=== PATIENT | female | born 1985 | race Caucasian/White ===

== ENCOUNTER 2017-06-09 09:26 | Emergency (ER) | payer BC ==
[~2017-06-09] VITALS: Ht 167.6 cm; Wt 103.0 kg
[~2017-06-09 09:26] MED LIST: GLUCTAB PO; IBUP800T23 PO; METH750T2 PO
[2017-06-09 09:29] VITALS: BP 137/75; PULSE 88; RESP 16; TEMP 97.7; O2SAT 98
[2017-06-09 09:41] LABS: BILIRUBIN, URINE NEG (NEG); BLOOD, URINE TRACE (NEG); GLUCOSE,URINE NEG (NEG); KETONE, URINE NEG (NEG); NITRITE,URINE NEG (NEG); URINE COLOR YELLOW (YELLW/STRAW); URINE LEUKOCYTE ESTERASE NEG (NEG)
[2017-06-09] MEDS ORDERED: METF1000 PO (09:42)
[2017-06-09 09:47] LABS: RBC, URINE 0-3 /hpf (0-3); SQUAMOUS EPITHELIAL CELL URINE 0-5 /hpf (0-5)
[2017-06-09] MEDS ORDERED: KETOROLAC TROMETHAMINE 60 MG/2 ML (IM) VIAL IM ONE (10:15)
[2017-06-09] MEDS ORDERED: SODIUM CHLOR 0.9% 1000 ML INJ 1,000 ML IV SCH (10:15)
[2017-06-09 10:53] LABS: AUTOMATED NEUTROPHIL # 4.5 TH/MM3 (1.8-7.7); BASOPHIL # 0.2 TH/MM3 (0-0.2); BASOPHIL % 2.8 % (0.0-2.0); EOSINOPHIL # 0.4 TH/MM3 (0-0.4); HEMATOCRIT 36.2 % (35.0-46.0); HEMOGLOBIN 12.8 GM/DL (11.6-15.3); LYMPH % 31.3 % (9.0-44.0); LYMPHOCYTE # 2.6 TH/MM3 (1.0-4.8); MEAN CELL VOLUME 86.9 FL (80.0-100.0); MEAN CORPUSCULAR HEMOGLOBIN 30.7 PG (27.0-34.0); MEAN CORPUSCULAR HGB CONC 35.3 % (32.0-36.0); MEAN PLATELET VOLUME 7.9 FL (7.0-11.0); MONOCYTE # 0.5 TH/MM3 (0-0.9); NEUT % 54.9 % (16.0-70.0); PLATELET COUNT 255 TH/MM3 (150-450); RED BLOOD COUNT 4.17 MIL/MM3 (4.00-5.30); RED CELL DISTRIBUTION WIDTH 12.7 % (11.6-17.2); WHITE BLOOD COUNT 8.2 TH/MM3 (4.0-11.0)
[2017-06-09 11:00] LABS: CHLORIDE 107 MEQ/L (98-107); SODIUM (NA) 140 MEQ/L (136-145)
[2017-06-09 11:04] LABS: ALBUMIN 3.3 GM/DL (3.4-5.0); BICARBONATE 26.3 MEQ/L (21.0-32.0); BLOOD UREA NITROGEN 14 MG/DL (7-18); CALCIUM 8.2 MG/DL (8.5-10.1); GLUCOSE,RANDOM 97 MG/DL (74-106)
[2017-06-09 11:05] LABS: PROTHROMBIN TIME - PATIENT 9.9 SEC (9.8-11.6)
[2017-06-09 11:07] LABS: ALT (GPT) 20 U/L (10-53); AST (GOT) 11 U/L (15-37); CREATININE 0.69 MG/DL (0.50-1.00); GLOMERULAR FILTRATION RATE 98 ML/MIN (>89)
[2017-06-09 11:09] LABS: TOTAL BILIRUBIN ADULT 0.2 MG/DL (0.2-1.0); TOTAL PROTEIN 7.3 GM/DL (6.4-8.2)
[2017-06-09 11:10] LABS: ALKALINE PHOSPHATASE 84 U/L (45-117)
[2017-06-09 11:51] VITALS: BP 120/66; PULSE 90; RESP 16; O2SAT 98
--- NOTE | 2017-06-09 12:32 | RADRPT ---
EXAM DATE/TIME: 06/09/2017 11:26 [facility] COMPARISON: US ABDOMEN - GALLBLADDER, June 22, 2014, 12:19. INDICATIONS : Right upper quadrant pain. MEDICAL HISTORY : PCOS. Kidney stones. SURGICAL HISTORY : section. Left knee arthoscopy. Dilation and curettage. Gynecologic surgery, fallopian tu be. ENCOUNTER: Initial ACUITY: 4-6 days PAIN SCORE: 4/10 LOCATION: Right upper quadrant MEASUREMENTS: LIVER: 19.9 cm length COMMON DUCT: 4 mm RIGHT KIDNEY: 11.7 x 5.3 x 5.3 cm FINDINGS: LIVER: Mild diffuse increased hepatic echogenicity with hepatomegaly. No focal mass or intrahepatic ductal d ilatation. COMMON DUCT: No intraluminal mass or stone visualized. GALLBLADDER: Contains no stones, demonstrates no wall thickening or pericholecystic fluid. PANCREAS: The visualized portions are within normal limits. RIGHT KIDNEY: No evidence of hydronephrosis, stone, or mass. CONCLUSION: 1. Echogenic enlarged liver consistent with hepatic steatosis versus medical liver disease. 2. Otherwise, unremarkable right upper quadrant ultrasound exam. Specifically, no cholelithiasis or s onographic evidence for cholecystitis. Miguelito Artis MD on June 09, 2017 at 12:28 Board Certified Radiologist. This report was verified electronically.
--- NOTE | 2017-06-09 12:44 | PD ---
HPI Chief Complaint: Abdominal Pain Time Seen by Provider: 10:02 Travel History International Travel<30 days: No Contact w/Intl Traveler<30days: No Traveled to known affect area: No History of Present Illness HPI 31-year-old female presents emergency department for evaluation of right upper quadrant pain that started Wednesday and she was playing with her son. Says that her son hit her in the right upper abdominal region and noticed that this was a little sore. Says a day later he accidentally need her into the stomach is ever playing and she developed increased pain. Says she feels her right upper quadrant is in "knots", is mild in severity and nonradiating. She noticed a bruise on Wednesday. She had one episode of nausea without vomiting or diarrhea. Denies fevers or chills. Denies urinary complaints. Her pain is not associated with food or activity. Her surgical history is significant for an ex lap to to perform a surgery on her fallopian tubes. She has a history of PCO S and takes metformin for control of this disease process. She has no other complaints today. FOR[facility]LY [facility], [facility]ER [facility] Past Medical History Anxiety: Yes Depression: Yes Heart Rhythm Problems: Yes (PVC-R/T ANXIETY) Cancer: No Cardiovascular Problems: No Diabetes: No Patient Takes Glucophage: Yes Diminished Hearing: No Glaucoma: No Hepatitis: No Hiatal Hernia: No Hypertension: No Kidney Stones: Yes Medical other: Yes (ANXIETY) Neurologic: Yes (PT STATES SHE HAD MENINGITIS IN MAY 2006) Reproductive: Yes (PCOS) Respiratory: No Immunizations Current: Yes Migraines: Yes Thyroid Disease: No ?: Unknown LMP: 04/15/17 : 4 Para: 2 Miscarriage: 2 : 1 Ovarian Cysts: Yes (PCOS) Dilation and Curettage (D&C): Yes (IN 2002) Past Surgical History Abdominal Surgery: No Cardiac Surgery: No Section: Yes (x2) Ear Surgery: No Endocrine Surgery: No Eye Surgery: No Genitourinary Surgery: No Gynecologic Surgery: Yes (C SECTION X2, D&C) Neurologic Surgery: No Oral Surgery: No Pacemaker: No Thoracic Surgery: No Other Surgery: Yes (D&C 2002) Social History Alcohol Use: Yes (OCC) Tobacco Use: No Substance Use: No Allergies-Medications (Allergen,Severity, Reaction): Coded Allergies: No Known Allergies (Verified Adverse Reaction, Unknown, 06/09/17) Reported Meds & Prescriptions Reported Meds & Active Scripts Active Reported Metformin (Metformin HCl) 1,000 Mg Tab 1,000 Mg PO DAILY With a meal Review of Systems Except as stated in HPI: all other systems reviewed are Neg Physical Exam Narrative GENERAL: Well-nourished, well-developed patient. SKIN: Focused skin assessment warm/dry. Right mid abdomen region with a 4 cm round area of ecchymosis in the healing process. HEAD: Normocephalic. EYES: No scleral icterus. No injection or drainage. NECK: Supple, trachea midline. No JVD or lymphadenopathy. CARDIOVASCULAR: Regular rate and rhythm without murmurs, gallops, or rubs. RESPIRATORY: Breath sounds equal bilaterally. No accessory muscle use. GASTROINTESTINAL: Abdomen soft, nondistended. Mild right upper quadrant tenderness to palpation without rebound tenderness. No right lower quadrant or pain anywhere else in the abdomen. No CVA tenderness. MUSCULOSKELETAL: No cyanosis, or edema. BACK: Nontender without obvious deformity. No CVA tenderness. Data Data Last Documented VS Vital Signs Date Time Temp Pulse Resp B/P (MAP) Pulse Ox O2 Delivery O2 Flow Rate FiO2 06/09/17 11:51 90 16 120/66 (84) 98 Room Air 06/09/17 09:29 97.7 Orders Orders Urinalysis - C+S If Indicated (06/09/17 09:28) Ed Urine Pregnancytest Poc (06/09/17 09:28) Complete Blood Count With Diff (06/09/17 10:15) Comprehensive Metabolic Panel (06/09/17 10:15) Lipase (06/09/17 10:15) Prothrombin Time / Inr (Pt) (06/09/17 10:15) Act Partial Throm Time (Ptt) (06/09/17 10:15) Sodium Chlor 0.9% 1000 Ml Inj (Ns 1000 M (06/09/17 10:15) Ketorolac Inj (Toradol Inj) (06/09/17 10:15) Us Abdomen Gallbladder (06/09/17 ) Ed Discharge Order (06/09/17 12:44) Labs Laboratory Tests Test 06/09/17 09:30 06/09/17 10:30 Urine Collection Type CLEAN CATCH Urine Color YELLOW Urine Turbidity CLEAR Urine pH 6.0 Urine Specific Berry 1.020 Urine Protein NEG mg/dL Urine Glucose (UA) NEG mg/dL Urine Ketones NEG mg/dL Urine Occult Blood TRACE Urine Nitrite NEG Urine Bilirubin NEG Urine Urobilinogen 0.2 MG/DL Urine Leukocyte Esterase NEG Urine RBC 0-3 /hpf Urine Squamous Epithelial Cells 0-5 /hpf Microscopic Urinalysis Comment CULT NOT INDICATED Urine Collection Time 09:30 White Blood Count 8.2 TH/MM3 Red Blood Count 4.17 MIL/MM3 Hemoglobin 12.8 GM/DL Hematocrit 36.2 % Mean Corpuscular Volume 86.9 FL Mean Corpuscular Hemoglobin 30.7 PG Mean Corpuscular Hemoglobin Concent 35.3 % Red Cell Distribution Width 12.7 % Platelet Count 255 TH/MM3 Mean Platelet Volume 7.9 FL Neutrophils (%) (Auto) 54.9 % Lymphocytes (%) (Auto) 31.3 % Monocytes (%) (Auto) 6.0 % Eosinophils (%) (Auto) 5.0 % Basophils (%) (Auto) 2.8 % Neutrophils # (Auto) 4.5 TH/MM3 Lymphocytes # (Auto) 2.6 TH/MM3 Monocytes # (Auto) 0.5 TH/MM3 Eosinophils # (Auto) 0.4 TH/MM3 Basophils # (Auto) 0.2 TH/MM3 CBC Comment DIFF FINAL Differential Comment Prothrombin Time 9.9 SEC Prothromb Time International Ratio 1.0 RATIO Activated Partial Thromboplast Time 26.4 SEC Blood Urea Nitrogen 14 MG/DL Creatinine 0.69 MG/DL Random Glucose 97 MG/DL Total Protein 7.3 GM/DL Albumin 3.3 GM/DL Calcium Level 8.2 MG/DL Alkaline Phosphatase 84 U/L Aspartate Amino Transf (AST/SGOT) 11 U/L Alanine Aminotransferase (ALT/SGPT) 20 U/L Total Bilirubin 0.2 MG/DL Sodium Level 140 MEQ/L Potassium Level 4.1 MEQ/L Chloride Level 107 MEQ/L Carbon Dioxide Level 26.3 MEQ/L Anion Gap 7 MEQ/L Estimat Glomerular Filtration Rate 98 ML/MIN Lipase 138 U/L [facility] Medical Decision Making Medical Screen Exam Complete: Yes Emergency Medical Condition: Yes Differential Diagnosis Hepatic steatosis, cholelithiasis, cholecystitis Narrative Course 31-year-old female presents emergency department for evaluation of right upper quadrant pain that started Wednesday and she was playing with her son. Says that her son hit her in the right upper abdominal region and noticed that this was a little sore. Says a day later he accidentally need her into the stomach is ever playing and she developed increased pain. Says she feels her right upper quadrant is in "knots", is mild in severity and nonradiating. She noticed a bruise on Wednesday. She had one episode of nausea without vomiting or diarrhea. Denies fevers or chills. Denies urinary complaints. Her pain is not associated with food or activity. Her surgical history is significant for an ex lap to to perform a surgery on her fallopian tubes. She has a history of PCO S and takes metformin for control of this disease process. She has no other complaints today. Vital signs are stable. Labs and imaging studies ordered. Labs are stable. test negative. Ultrasound consistent for fatty liver disease. Patient denies significant alcohol intake. She denies any oral contraceptive use. Advised patient that she should follow-up with her primary care physician to evaluate further for this liver finding. Advised to return to the emergency department for worsening or persistent symptoms. She states understanding will comply. Diagnosis Primary Impression: Hepatic steatosis Referrals: General Surgeon Primary Care Physician Additional Instructions: Follow-up with primary care physician regarding today's findings. Avoid alcohol intake until further evaluation can be completed of your liver. If your symptoms persist or worsen return to the emergency department. Disposition: 01 DISCHARGE HOME Condition: Stable Katiuska Soliz Jun 09, 2017 12:44
== END 2017-06-09 13:00 | disposition home or self-care (01) ==
LOC: PHED 09:26
DX: K76.0 Fatty (change of) liver, not elsewhere classified (principal); R11.0 Nausea; F41.9 Anxiety disorder, unspecified; F32.9 Major depressive disorder, single episode, unspecified; Z87.442 Personal history of urinary calculi; Z79.899 Other long term (current) drug therapy
CPT/HCPCS: 76705; 80053; 81001; 83690; 84703; 85025; 85610; 85730; 96360; 96372; 99284; J1885; J7030

== ENCOUNTER 2017-06-25 17:10 | Emergency (ER) | payer BC ==
[~2017-06-25] VITALS: Ht 167.6 cm; Wt 103.0 kg
[~2017-06-25 17:10] MED LIST changes: -GLUCTAB PO; -IBUP800T23 PO; +METF1000 PO; -METH750T2 PO
[2017-06-25 17:43] VITALS: BP 121/69; PULSE 80; RESP 18; TEMP 98.3; O2SAT 98
[2017-06-25 18:55] VITALS: O2SAT 98
[2017-06-25] MEDS ORDERED: SODIUM CHLOR 0.9% 1000 ML INJ 1,000 ML IV ONE (19:00)
[2017-06-25] MEDS ORDERED: KETOROLAC TROMETHAMINE 30 MG/ML (IVP) VIAL IV PUSH ONE (19:00)
[2017-06-25] MEDS ORDERED: SODIUM CHLORIDE 0.9% FLUSH 10 ML FLUSH IVF PRN (19:00)
[2017-06-25 19:11] VITALS: BP_SYST 117; BP_SYST 130; BP_DIAS 70; BP_DIAS 74
--- NOTE | 2017-06-25 19:11 | RADRPT ---
EXAM DATE/TIME: 06/25/2017 18:59 [facility] COMPARISON: No previous studies available for comparison. INDICATIONS : Left sided chest pain. MEDICAL HISTORY : PCOS. Kidney stones SURGICAL HISTORY : section. Left knee arthoscopy. Dilation and curettage. Gynecologic surgery, fallopian tube. ENCOUNTER: Initial ACUITY: 1 day PAIN SCORE: 7/10 LOCATION: Left chest FINDINGS: PA and lateral views of the chest demonstrate the lungs to be symmetrically aerated without evidence of mass, infiltrate or effusion. The cardiomediastinal contours are unremarkable. Osseous structure s are intact. CONCLUSION: No evidence of acute cardiopulmonary disease. Zachery Samson MD on June 25, 2017 at 19:09 Board Certified Radiologist. This report was verified electronically.
[2017-06-25 19:15] LABS: AUTOMATED NEUTROPHIL # 4.8 TH/MM3 (1.8-7.7); BASOPHIL # 0.1 TH/MM3 (0-0.2); BASOPHIL % 0.8 % (0.0-2.0); EOSINOPHIL # 0.5 TH/MM3 (0-0.4); HEMOGLOBIN 12.5 GM/DL (11.6-15.3); LYMPHOCYTE # 3.2 TH/MM3 (1.0-4.8); MEAN CELL VOLUME 87.2 FL (80.0-100.0); MEAN CORPUSCULAR HEMOGLOBIN 29.3 PG (27.0-34.0); MEAN CORPUSCULAR HGB CONC 33.6 % (32.0-36.0); MEAN PLATELET VOLUME 7.5 FL (7.0-11.0); MONO % 5.8 % (0.0-8.0); MONOCYTE # 0.5 TH/MM3 (0-0.9); NEUT % 52.4 % (16.0-70.0); PLATELET COUNT 255 TH/MM3 (150-450); RED BLOOD COUNT 4.25 MIL/MM3 (4.00-5.30); RED CELL DISTRIBUTION WIDTH 12.3 % (11.6-17.2); WHITE BLOOD COUNT 9.1 TH/MM3 (4.0-11.0)
[2017-06-25 19:22] LABS: CHLORIDE 106 MEQ/L (98-107); SODIUM (NA) 139 MEQ/L (136-145)
[2017-06-25 19:26] LABS: CALCIUM 8.5 MG/DL (8.5-10.1)
[2017-06-25 19:27] LABS: ALBUMIN 3.6 GM/DL (3.4-5.0); BICARBONATE 27.3 MEQ/L (21.0-32.0); BLOOD UREA NITROGEN 9 MG/DL (7-18); GLUCOSE,RANDOM 81 MG/DL (74-106)
[2017-06-25 19:29] LABS: ALT (GPT) 20 U/L (10-53)
[2017-06-25 19:30] LABS: AST (GOT) 9 U/L (15-37); CREATININE 0.63 MG/DL (0.50-1.00); GLOMERULAR FILTRATION RATE 109 ML/MIN (>89); PROTHROMBIN TIME - PATIENT 9.8 SEC (9.8-11.6)
[2017-06-25 19:31] LABS: TOTAL BILIRUBIN ADULT 0.2 MG/DL (0.2-1.0); TOTAL PROTEIN 7.6 GM/DL (6.4-8.2)
[2017-06-25 19:32] LABS: ALKALINE PHOSPHATASE 86 U/L (45-117)
[2017-06-25 19:34] LABS: TROPONIN I LESS THAN 0.02 NG/ML (0.02-0.05)
[2017-06-25 19:35] LABS: D-DIMER LESS THAN 0.19 MG/L FEU (0.00-0.50)
--- NOTE | 2017-06-25 20:18 | PD ---
HPI Chief Complaint: Chest Pain Time Seen by Provider: 18:42 Travel History International Travel<30 days: No Contact w/Intl Traveler<30days: No Traveled to known affect area: No History of Present Illness HPI Patient is a 31-year-old female who comes in complaining of chest pain. She says that the pain started while she was at work today and felt like someone was punching her in the left side of her chest. She says she was sitting at the time. She took 2 baby aspirin and came into the emergency department. She denies shortness of breath, but says that she has pain when she takes a deep breath. She denies nausea or vomiting. She denies any history of heart issues. She denies any history of early cardiac problems in her family. She denies any drug use. Severity is mild to moderate. PFSH Past Medical History Anxiety: Yes Depression: Yes Heart Rhythm Problems: Yes (PVC-R/T ANXIETY) Cancer: No Cardiovascular Problems: No Diabetes: Yes Patient Takes Glucophage: Yes Diminished Hearing: No Glaucoma: No Hepatitis: No Hiatal Hernia: No Hypertension: No Kidney Stones: Yes Medical other: Yes (ANXIETY) Neurologic: Yes (PT STATES SHE HAD MENINGITIS IN MAY 2006) Reproductive: Yes (PCOS) Respiratory: No Immunizations Current: Yes Migraines: Yes Thyroid Disease: No Tetanus Vaccination: < 5 Years Influenza Vaccination: Yes ?: Not LMP: 2 months ago : 4 Para: 2 Miscarriage: 2 : 1 Ovarian Cysts: Yes (PCOS) Dilation and Curettage (D&C): Yes (IN 2002) Past Surgical History Abdominal Surgery: No Cardiac Surgery: No Section: Yes (x2) Ear Surgery: No Endocrine Surgery: No Eye Surgery: No Genitourinary Surgery: No Gynecologic Surgery: Yes (C SECTION X2, D&C) Neurologic Surgery: No Oral Surgery: No Pacemaker: No Thoracic Surgery: No Other Surgery: Yes (D&C 2002) Social History Alcohol Use: Yes (OCC) Tobacco Use: No Substance Use: No Allergies-Medications (Allergen,Severity, Reaction): Coded Allergies: No Known Allergies (Verified Adverse Reaction, Unknown, 06/25/17) Reported Meds & Prescriptions Reported Meds & Active Scripts Active Reported Metformin (Metformin HCl) 1,000 Mg Tab 1,000 Mg PO DAILY With a meal Review of Systems Except as stated in HPI: all other systems reviewed are Neg General / Constitutional: No: Fever, Chills HENT: No: Headaches, Vertigo, Lightheadedness Cardiovascular: Positive: Chest Pain or Discomfort Respiratory: No: Cough, Shortness of Breath Gastrointestinal: No: Nausea, Vomiting Skin: No Rash, No Change in Pigmentation Neurologic: No: Weakness, Dizziness Physical Exam Narrative GENERAL: Awake and alert, no acute distress. SKIN: Focused skin assessment warm/dry. No wounds or signs of infection. HEAD: Atraumatic. Normocephalic. EYES: Pupils equal and round. No scleral icterus. ENT: Mucous membranes pink and moist. NECK: Trachea midline. No JVD. CARDIOVASCULAR: Regular rate and rhythm. No murmur appreciated. RESPIRATORY: No accessory muscle use. Clear to auscultation. Breath sounds equal bilaterally. GASTROINTESTINAL: Abdomen soft, non-tender, nondistended. MUSCULOSKELETAL: No obvious deformities. No clubbing. No cyanosis. No edema. NEUROLOGICAL: Awake and alert. No obvious cranial nerve deficits. Motor grossly within normal limits. Normal speech. PSYCHIATRIC: Appropriate mood and affect; insight and judgment normal. Data Data Last Documented VS Vital Signs Date Time Temp Pulse Resp B/P (MAP) Pulse Ox O2 Delivery O2 Flow Rate FiO2 06/25/17 19:11 117/74 (88) 130/70 (90) 06/25/17 18:55 98 Room Air 06/25/17 17:43 98.3 80 18 Orders Orders Electrocardiogram (06/25/17 18:47) Ckmb (Isoenzyme) Profile (06/25/17 18:47) Complete Blood Count With Diff (06/25/17 18:47) Comprehensive Metabolic Panel (06/25/17 18:47) D-Dimer (06/25/17 18:47) Prothrombin Time / Inr (Pt) (06/25/17 18:47) Act Partial Throm Time (Ptt) (06/25/17 18:47) Troponin I (06/25/17 18:47) Ecg Monitoring (06/25/17 18:47) Bilateral Bp Monitoring (06/25/17 18:47) Iv Access Insert/Monitor (06/25/17 18:47) Oximetry (06/25/17 18:47) Oxygen Administration (06/25/17 18:47) Sodium Chloride 0.9% Flush (Ns Flush) (06/25/17 19:00) Chest, Pa & Lat (06/25/17 18:47) Ed Urine Pregnancytest Poc (06/25/17 18:47) Ketorolac Inj (Toradol Inj) (06/25/17 19:00) Sodium Chlor 0.9% 1000 Ml Inj (Ns 1000 M (06/25/17 19:00) Labs Laboratory Tests Test 06/25/17 19:05 White Blood Count 9.1 TH/MM3 Red Blood Count 4.25 MIL/MM3 Hemoglobin 12.5 GM/DL Hematocrit 37.0 % Mean Corpuscular Volume 87.2 FL Mean Corpuscular Hemoglobin 29.3 PG Mean Corpuscular Hemoglobin Concent 33.6 % Red Cell Distribution Width 12.3 % Platelet Count 255 TH/MM3 Mean Platelet Volume 7.5 FL Neutrophils (%) (Auto) 52.4 % Lymphocytes (%) (Auto) 35.0 % Monocytes (%) (Auto) 5.8 % Eosinophils (%) (Auto) 6.0 % Basophils (%) (Auto) 0.8 % Neutrophils # (Auto) 4.8 TH/MM3 Lymphocytes # (Auto) 3.2 TH/MM3 Monocytes # (Auto) 0.5 TH/MM3 Eosinophils # (Auto) 0.5 TH/MM3 Basophils # (Auto) 0.1 TH/MM3 CBC Comment DIFF FINAL Differential Comment Prothrombin Time 9.8 SEC Prothromb Time International Ratio 1.0 RATIO Activated Partial Thromboplast Time 27.3 SEC D-Dimer Quantitative (PE/DVT) LESS THAN 0.19 MG/L FEU Blood Urea Nitrogen 9 MG/DL Creatinine 0.63 MG/DL Random Glucose 81 MG/DL Total Protein 7.6 GM/DL Albumin 3.6 GM/DL Calcium Level 8.5 MG/DL Alkaline Phosphatase 86 U/L Aspartate Amino Transf (AST/SGOT) 9 U/L Alanine Aminotransferase (ALT/SGPT) 20 U/L Total Bilirubin 0.2 MG/DL Sodium Level 139 MEQ/L Potassium Level 3.9 MEQ/L Chloride Level 106 MEQ/L Carbon Dioxide Level 27.3 MEQ/L Anion Gap 6 MEQ/L Estimat Glomerular Filtration Rate 109 ML/MIN Total Creatine Kinase 59 U/L Troponin I LESS THAN 0.02 NG/ML MDM Medical Decision Making Medical Screen Exam Complete: Yes Emergency Medical Condition: Yes Medical Record Reviewed: Yes Interpretation(s) ECG shows normal sinus rhythm, no ST elevation or depression, normal intervals Differential Diagnosis Pneumonia versus pneumothorax versus costochondritis versus ACS (unlikely) Narrative Course Patient is a 31-year-old female who comes in complaining of chest pain. Exam shows no acute abnormalities. IV established, labs sent. Labs including troponin and d-dimer are all within normal limits. Chest x-ray performed shows no acute abnormalities. Last 24 hours Impressions Chest X-Ray 06/25/17 9141 Signed Impressions: Service Date/Time: Sunday, June 25, 2017 18:59 - CONCLUSION: No evidence of acute cardiopulmonary disease. Zachery Samson MD Patient given Toradol and feeling better. I advised the patient that I cannot be 100% sure she is not having a cardiac issue, though I feel it is unlikely at this time. She is offered an observation stay, would prefer to go home. She is advised follow-up with a primary care doctor. Advised return to the ED as needed for any worsening symptoms. Diagnosis Primary Impression: Chest pain Qualified Codes: R07.9 - Chest pain, unspecified Patient Instructions: Chest Pain (ED), General Instructions Additional Instructions: Follow-up with a primary care doctor. Take ibuprofen as needed for pain. Return to the ED at anytime for any worsening symptoms. Disposition: 01 DISCHARGE HOME Condition: Stable Jane Victor MD Jun 25, 2017 20:18
[2017-06-25 20:22] VITALS: BP 123/64; PULSE 75; RESP 16; O2SAT 96
--- NOTE | 2017-06-25 23:29 | EKG ---
Date Performed: 06/25/2017 Time Performed: 17:19:15 PTAGE: 31 years EKG: Sinus rhythm WITH SINUS ARRHYTHMIA POSSIBLE INFERIOR MYOCARDIAL INFARCTION BORDERLINE ECG PREVIOUS TRACING : 08/06/2015 14.24 Since the previous tracing, no significant change noted DOCTOR: Kyle Pablo Interpretating Date/Time 06/25/2017 23:27:41
== END 2017-06-25 20:28 | disposition home or self-care (01) ==
LOC: PHEFT 17:10
DX: R07.9 Chest pain, unspecified (principal); R94.31 Abnormal electrocardiogram [ECG] [EKG]; F41.9 Anxiety disorder, unspecified; F32.9 Major depressive disorder, single episode, unspecified; E11.9 Type 2 diabetes mellitus without complications; E28.2 Polycystic ovarian syndrome
CPT/HCPCS: 71046; 80053; 82550; 84484; 84703; 85025; 85379; 85610; 85730; 93005; 96361; 96374; 99285; J1885; J7030